=== PATIENT | male | born 1980 | race Caucasian/White ===

== ENCOUNTER 2023-06-30 08:06 | Emergency (ER) | payer MEDICAID ==
[~2023-06-30] VITALS: Ht 182.9 cm; Wt 157.4 kg
[2023-06-30 08:10] VITALS: BP 161/78; PULSE 91; RESP 20; TEMP 98.2; O2SAT 97
[2023-06-30] MEDS ORDERED: AMOX500C25 PO (08:39)
[2023-06-30 10:00] VITALS: BP 161/78; PULSE 91; RESP 20; TEMP 98.2; O2SAT 97
== END 2023-06-30 10:00 | disposition home or self-care (01) ==
LOC: MED 08:06
DX: J02.9 Acute pharyngitis, unspecified (principal); Z79.899 Other long term (current) drug therapy
CPT/HCPCS: 87081; 99283